=== PATIENT | female | born 1960 | race Caucasian/White ===

== ENCOUNTER 2018-10-11 08:18 | Emergency (ER) | payer OTHER ==
[2018-10-11 08:27] VITALS: BP 133/99
--- NOTE | 2018-10-11 08:42 | UC ---
Throat Pain/Nasal Benitez HPI - HPI Summary HPI Summary: 58-year-old woman comes in with a chief complaint of 4 days of upper respiratory tract infection symptoms and myalgias. About 4 days ago patient started with fevers and myalgias with a runny nose sore throat. Her sinus pressure is gotten worse. She's used over the counter saline nasal spray which did help some with the symptoms. However now her sinuses are completely compacted. No shortness of breath or cough. She has not been using decongestants. - History of Current Complaint Chief Complaint: UCRespiratory Stated Complaint: EAR PAIN SORE TGHROAT HEAD CONGESTION Time Seen by Provider: 10/11/18 08:31 Pain Intensity: 3 - Allergies/Home Medications Allergies/Adverse Reactions: Allergies Allergy/AdvReac Type Severity Reaction Status Date / Time No Known Allergies Allergy Verified 10/11/18 08:27 Home Medications: Home Medications Pantoprazole TAB * [Protonix TAB*] 40 mg PO DAILY 10/11/18 [History Confirmed ] Venlafaxine CAP (NF) [Effexor CAP (NF)] 75 mg PO DAILY 10/11/18 [History Confirmed 10/11/18] PMH/Surg Hx/FS Hx/Imm Hx Previously Healthy: Yes Endocrine History: Hypothyroidism - Surgical History Surgical History: Yes Surgery Procedure, Year, and Place: HYSTERECTOMY 1997,PARA THYROID SURGERY 1995 - Family History Known Family History: Positive: Non-Contributory - Social History Alcohol Use: None Substance Use Type: None Smoking Status (MU): Never Smoked Tobacco Review of Systems All Other Systems Reviewed And Are Negative: Yes Constitutional: Positive: Fever, Chills Skin: Positive: Negative Eyes: Positive: Negative ENT: Positive: Sore Throat, Ear Ache, Nasal Discharge, Sinus Congestion, Sinus Pain/Tenderness Respiratory: Positive: Negative Cardiovascular: Positive: Negative Gastrointestinal: Positive: Negative Motor: Positive: Negative Neurovascular: Positive: Negative Musculoskeletal: Positive: Myalgia Neurological: Positive: Negative Psychological: Positive: Negative Is Patient Immunocompromised?: No Physical Exam Triage Information Reviewed: Yes Appearance: No Pain Distress, Well-Nourished, Ill-Appearing - mild Vital Signs: Initial Vital Signs Temp 97.3 F 10/11/18 08:23 Pulse 79 10/11/18 08:23 Resp 16 10/11/18 08:23 BP 133/99 10/11/18 08:23 Pulse Ox 97 10/11/18 08:23 Vital Signs Reviewed: Yes Eye Exam: Normal Eyes: Positive: Conjunctiva Clear ENT: Positive: Pharyngeal erythema, Nasal congestion, Nasal drainage, TM dull Neck exam: Normal Neck: Positive: Supple Respiratory Exam: Normal Respiratory: Positive: Lungs clear, Normal breath sounds, No respiratory distress Cardiovascular: Positive: RRR Musculoskeletal Exam: Normal Musculoskeletal: Positive: Strength Intact, ROM Intact Neurological Exam: Normal Neurological: Positive: Alert, Muscle Tone Normal Psychological Exam: Normal Psychological: Positive: Age Appropriate Behavior Skin Exam: Normal Throat Pain/Nasal Course/Dx - Course Course Of Treatment: DISCUSSED VIRAL VERSES BACTERIAL INFECTION AND THE ROLE OF ANTIBIOTICS. THE PATIENT WISHES TO BE ON ANTIBIOTIC AT THIS TIME. - Differential Dx/Diagnosis Provider Diagnosis: Sinusitis Discharge - Sign-Out/Discharge Documenting (check all that apply): Patient Departure All imaging exams completed and their final reports reviewed: No Studies - Discharge Plan Condition: Stable Disposition: HOME Prescriptions: Amoxicillin/Clavulanate TAB* [Augmentin TAB 875*] 875 mg PO BID #20 tab Patient Education Materials: Sinusitis (ED) Referrals: Bethany Rutherford MD [Primary Care Provider] - Additional Instructions: FOLLOW UP WITH YOUR DOCTOR IF NOT COMPLETELY IMPROVED. GET RECHECKED FOR ANY WORSENING OF YOUR CONDITION OR QUESTIONS OR CONCERNS. - Billing Disposition and Condition Condition: STABLE Disposition: Home
== END 2018-10-11 08:50 | disposition home or self-care (01) ==
LOC: UCEAST 08:18
DX: J32.9 Chronic sinusitis, unspecified (principal)
CPT/HCPCS: 99212; G0463

== ENCOUNTER 2019-08-08 18:13 | Emergency (ER) | payer OTHER ==
[2019-08-08 18:40] LABS: Urine Appearance Clear; Urine Bilirubin Negative (Negative); Urine Blood 1+ (Negative); Urine Color Straw; Urine Glucose Negative (Negative); Urine Ketones Negative (Negative); Urine Nitrite Negative (Negative); Urine Protein Negative (Negative); Urine Specific Gravity 1.003 (1.010-1.030); Urine Urobilinogen Negative (Negative)
[2019-08-08 18:45] LABS: Urine Bacteria 1+ (Absent); Urine Red Blood Cell Trace(0-2/hpf) (Absent); Urine Squamous Epithelial Cell Present (Absent); Urine White Blood Cell Trace(0-5/hpf) (Absent)
[2019-08-08] MEDS ORDERED: Amoxicillin/Clavulanate TAB* 500 MG PO ONE (23:45)
[2019-08-08] MEDS ORDERED: Phenazopyridine TAB* 100 MG PO ONE (23:45)
--- NOTE | 2019-08-08 23:45 | ED ---
GI/ HPI - HPI Summary HPI Summary: 59-year-old who presents with dysuria for the past day. She states this feels similar to uti has had in the past. She admits to nausea after dinner but that has resolved. No vomiting. No fevers. No flank pain. No abdominal pain. she admits to urgency frequency. - History of Current Complaint Chief Complaint: EDUrogenitalProblems Time Seen by Provider: 08/08/19 23:40 Stated Complaint: POSS UTI PER PT Pain Intensity: 3 - Allergy/Home Medications Allergies/Adverse Reactions: Allergies Allergy/AdvReac Type Severity Reaction Status Date / Time No Known Allergies Allergy Verified 08/08/19 18:17 PMH/Surg Hx/FS Hx/Imm Hx Endocrine/Hematology History: Reports: Hx Thyroid Disease Denies: Hx Diabetes Cardiovascular History: Reports: Hx Hypertension Respiratory History: Denies: Hx Asthma, Hx Chronic Obstructive Pulmonary Disease (COPD) GI History: Denies: Hx Ulcer Sensory History: Reports: Hx Contacts or Glasses Opthamlomology History: Reports: Hx Contacts or Glasses - Cancer History Hx Chemotherapy: No Hx Radiation Therapy: No - Surgical History Surgery Procedure, Year, and Place: HYSTERECTOMY 1997,PARA THYROID SURGERY 1995 Infectious Disease History: No Infectious Disease History: Denies: Hx Clostridium Difficile, Hx Hepatitis, Hx Human Immunodeficiency Virus (HIV), Hx of Known/Suspected MRSA, Hx Shingles, Hx Tuberculosis, Hx Known/ Suspected VRE, Hx Known/Suspected VRSA, History Other Infectious Disease, Traveled Outside the [place] in Last 30 Days - Family History Known Family History: Positive: Non-Contributory - Social History Alcohol Use: None Substance Use Type: Reports: None Smoking Status (MU): Never Smoked Tobacco Review of Systems Negative: Fever Negative: Chest Pain Negative: Shortness Of Breath Positive: Nausea - resolved. Negative: Abdominal Pain, Vomiting Positive: dysuria, urgency. Negative: flank pain All Other Systems Reviewed And Are Negative: Yes Physical Exam Triage Information Reviewed: Yes Vital Signs On Initial Exam: Initial Vitals Temp Pulse Resp BP Pulse Ox 98.0 F 84 19 142/94 97 08/08/19 18:15 08/08/19 18:15 08/08/19 18:15 08/08/19 18:15 08/08/19 18:15 Vital Signs Reviewed: Yes Appearance: Positive: Well-Appearing Skin: Positive: Warm, Dry Head/Face: Positive: Normal Head/Face Inspection Eyes: Positive: Normal, Conjunctiva Clear ENT: Positive: Pharynx normal Respiratory/Lung Sounds: Positive: Clear to Auscultation, Breath Sounds Present Cardiovascular: Positive: Normal, RRR Abdomen Description: Positive: Nontender, Soft. Negative: CVA Tenderness (R), CVA Tenderness (L) Bowel Sounds: Positive: Present Musculoskeletal: Positive: Normal Neurological: Positive: Normal Psychiatric: Positive: Normal Procedures - Sedation Patient Received Moderate/Deep Sedation with Procedure: No Diagnostics - Vital Signs Vital Signs Temp Pulse Resp BP Pulse Ox 08/08/19 20:20 98.3 F 77 18 145/93 95 08/08/19 18:15 98.0 F 84 19 142/94 97 - Laboratory Lab Results: Lab Results 08/08/19 Range/Units 18:27 Urine Color Straw Urine Appearance Clear Urine pH 6.0 (5-9) Ur Specific [place] 1.003 L (1.010-1.030) Urine Protein Negative (Negative) Urine Ketones Negative (Negative) Urine Blood 1+ A (Negative) Urine Nitrate Negative (Negative) Urine Bilirubin Negative (Negative) Urine Urobilinogen Negative (Negative) Ur Leukocyte Esterase 1+ A (Negative) Urine WBC (Auto) Trace(0-5/hpf) (Absent) Urine RBC (Auto) Trace(0-2/hpf) (Absent) Ur Squamous Epith Cells Present A (Absent) Urine Bacteria 1+ A (Absent) Urine Glucose Negative (Negative) Lab Statement: Any lab studies that have been ordered have been reviewed, and results considered in the medical decision making process. GIGU Course/Dx - Course Course Of Treatment: 59-year-old who presents with dysuria for the past day. She states this feels similar to uti has had in the past. She admits to nausea after dinner but that has resolved. No vomiting. No fevers. No flank pain. No abdominal pain. she admits to urgency frequency. On exam nontender abdomen. Vital stable. Urine shows UTI. We'll treat with Augmentin and Pyridium. Told to increase fluids. Patient understands and agrees plan. - Diagnoses Differential Diagnoses - Female: Pyelonephritis, Urinary Tract Infection, Ureteral Calculi Provider Diagnoses: UTI (urinary tract infection) Discharge ED - Sign-Out/Discharge Documenting (check all that apply): Patient Departure - Discharge Plan Condition: Good Disposition: HOME Prescriptions: Amoxicillin/Clavulanate TAB* [Augmentin TAB 500 mg*] 500 mg PO BID #9 tab Phenazopyridine 200 mg (NF) [Pyridium 200 MG tab *] 200 mg PO TID #5 tab Patient Education Materials: Urinary Tract Infection in Women (ED) Referrals: Bethany Rutherford MD [Primary Care Provider] - Additional Instructions: Take augmentin twice a day for 5 days, first dose given in ED Take pyridium two tablets three times a day with food for 2 days, first dose given in ED drink plenty of fluids Follow up with primary in 7 days Return to ED if develop fever or any new or worsening symptoms - Billing Disposition and Condition Condition: GOOD Disposition: Home
[2019-08-08 23:58] VITALS: BP 0/0
== END 2019-08-08 23:48 | disposition home or self-care (01) ==
LOC: ED 18:13
DX: N39.0 Urinary tract infection, site not specified (principal); E03.9 Hypothyroidism, unspecified; I10 Essential (primary) hypertension; Z90.710 Acquired absence of both cervix and uterus
CPT/HCPCS: 81003; 81015; 87086; 99282; A9270-GY

== ENCOUNTER → 2019-09-16 08:55 | Day surgery (SDC) | payer OTHER ==
[~2019-09-16 08:55] MED LIST: Bacitracin OINTMENT* 0.5% 0.5 oz TUBE ONE; Buffered Lidocaine 1% SYRIN* 1 ML/SYRINGE INTRADERM ONE; Dexamethasone IV* 4 MG/ML 1 ML (4 MG) ONE; EPHEDrine (Pressors)* 50 MG/ML VIAL ONE; Famotidine IV* 10 MG/ML 2 ML (20 mg) IV ONE; Famotidine IV* 10 MG/ML 2 ML (20 mg) ONE; Ketorolac INJ* 30 MG/ML 1 ML VIAL ONE; Lactated Ringers 1000 ML Bag* 1,000 ML IV SCH; Lidocaine 1% w EPI 1:100,000* MDV 20 ML VIAL ONE; Lidocaine 2% PF * 5 ML VIAL ONE; Lidocaine 4% TOPICAL* 50 ML TOP.SOLN ONE; Midazolam* 1 MG/ML 5 ML VIAL (5 MG) ONE; Naloxone* 0.4 MG/ML 1 ML VIAL IV PRN; Ondansetron INJ* 2 MG/ML VIAL IV PRN; Ondansetron INJ* 2 MG/ML VIAL ONE; Oxymetazoline 0.05% NASAL SPR* 15 ML BTL ONE; Propofol* 10 MG/ML 20 ML BTL ONE; Triamcinolone Acetonide* 40 MG/ML 1 ML VIAL ONE; fentaNYL* 50 MCG/ML 2 ML VIAL (100 MCG VIAL) IV PRN; fentaNYL* 50 MCG/ML 2 ML VIAL (100 MCG VIAL) ONE; oxyCODONE ORAL.SOLN* 5 MG/5 ML UDC ONE
[2019-09-16 14:31] VITALS: BP 138/89
--- NOTE | 2019-09-16 21:41 | OP ---
DATE OF OPERATION: 09/16/19 [facility] DATE OF : 56 ATTENDING SURGEON: Jeffry Teran MD BILINGUAL TRAINER: None. ANESTHESIA: General. PRE-OP DIAGNOSIS: Sinonasal polyposis. POST-OP DIAGNOSIS: Sinonasal polyposis. OPERATIVE PROCEDURE: Bilateral endoscopic sinus surgery, specifically left partial ethmoidectomy, left maxillary antrostomy with removal of polyp and right maxillary antrostomy with removal of polyp. ESTIMATED BLOOD LOSS: Approximately 75 mL. SPECIMENS: Right and left sinus contents to Pathology. 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 DESCRIPTION OF PROCEDURE: On 09/16/19, the patient was brought to the operating room. General anesthesia was induced and oral endotracheal tube was placed. The patient was draped. Time-out was performed. The [employer] system was used integrated with patient's CT scan to provide navigation. It was registered to within 1.5 mm accuracy. The patient had been previously decongested in the holding area, 1% lidocaine with 1:100,000 epinephrine was infiltrated into both middle turbinates as well as into polyps on both sides of the nose. Once adequate time had been allotted for vasoconstriction, the procedure was begun on the left side. A straight Blakesley forceps was used to debulk some of the polyps. After that, a microdebrider was used to facilitate further removal of polyps. A ball-tip probe was used to cannulate the natural ostium of the maxillary sinus and enlarge it. It was also used to forward fracture the uncinate. The microdebrider was then used to complete the uncinectomy and maxillary antrostomy. Polyp was removed from the maxillary sinus as well. The ethmoid bulla was then entered with a J curette. Anterior ethmoid septations as well as polyp tissue and polypoid mucosa was removed using a combination of thru-cutting forceps and the microdebrider. Once the procedure on the left was completed, attention was turned to the right side. The patient on this side predominantly had polyps in the right middle meatus on both sides of the middle turbinate. The middle turbinate was medialized. The uncinate was taken down. Natural maxillary antrum was identified with the ball- tip probe and enlarged. It was an accessory antrum. These two were connected. A microdebrider was used to complete the antrostomy as well as the uncinectomy. Polyp was removed from the area of the opening of the maxillary sinus and some also from the nasal roof medial to the middle turbinate. Both middle turbinates were bolgerized. Stammberger Sinu-Foam gel with Kenalog was then placed into the middle meatus bilaterally. Some septal bleeding on the left was controlled with a monopolar suction Bovie cautery. The patient was then extubated and delivered to the PACU. [id number]/CPS #: [id number] AMANDA
== END | disposition home or self-care (01) ==
LOC: OR 08:55
PROVIDERS: ATTEND Otolaryngology
DX: J33.0 Polyp of nasal cavity (principal); J33.1 Polypoid sinus degeneration; J32.0 Chronic maxillary sinusitis; E03.9 Hypothyroidism, unspecified; E78.5 Hyperlipidemia, unspecified; K21.9 Gastro-esophageal reflux disease without esophagitis; E55.9 Vitamin D deficiency, unspecified; F32.9 Major depressive disorder, single episode, unspecified
CPT/HCPCS: 88305; A9270-GY; J1100; J1885; J2250; J2405; J2704; J3010; J3301

== ENCOUNTER 2019-10-09 07:08 | Emergency (ER) | payer OTHER ==
--- OUTSIDE RECORDS SUMMARY | 2019-10-09 07:12 | XMS REPORT | Continuity of Care Document ---
:1960 External Reference #:[id number] Author Name Jeffry Teran MD Address [address] [place] [address] Care Team Providers Name Role Phone Bethany Rutherford M.D. 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 Medicine Problems Description No Information Available Social History Type Date Description Comments Sex Unknown Tobacco Use Start: Unknown Never Smoked Cigarettes Tobacco Use Start: Unknown Never Smoked Cigars Tobacco Use Start: Unknown Never Smoked A Pipe Smokeless Tobacco Never Used Smokeless Tobacco ETOH Use Currently occasionally consumes alcohol Tobacco Use Start: Unknown Patient has never smoked Smoking Status Reviewed: 09/11/19 Patient has never smoked Allergies, Adverse Reactions, Alerts Description No Known Drug Allergies Medications Active Medications SIG Qnty Indications Ordering Date Provider Amoxicillin/Clavulanat 1 by mouth twice 20tabs Jeffry Navarro 07/19/2019 e Potassium a day for 10 days MD Jeffry 875-125mg - start after Tablets surgery Percocet 1-2 tabs by mouth 24tabs Jeffry Navarro 07/19/2019 5-325mg Tablets every 4-6 hours MD Jeffry as needed for pain Prednisone 4 tabs po every 40tabs Jeffry Navarro 07/19/2019 10mg Tablets day x4 d, then 3 MD Jeffry tabs po every day x4 d, then 2 tabs po every day x4d, then 1 tab po qd x4d begin 3 days before surgery Montelukast Sodium 1 by mouth every 90tabs Jeffry Navarro 01/26/2019 10mg day MD Jeffry Tablets Mometasone Furoate 2 sprays to each 51gm Jeffry Navarro 01/26/2019 nostril daily MD Jeffry 50mcg/Act Suspension Medrol take as directed melina Navarro 12/30/2018 4mg TBPK MD Jeffry Levothyroxine Sodium 1 by mouth every Unknown day 88mcg Tablets Venlafaxine HCL ER 1 cap daily Unknown 75mg Caps ER 24HR Simvastatin 1 by mouth every Unknown 20mg Tablets day Pantoprazole Sodium 1 tab daily Unknown 40mg Tablets DR MCLEOD Vitamin B12 3 tabs daily Unknown 1000mcg Tablets ER D3 Adult 3 chewtabs daily Unknown 1000Unit Chewtabs Cetirizine HCL 1 by mouth every Unknown 10mg day Tablets Vitamin D3 1 by mouth every Unknown 25mcg (999 day Ut) Capsules Vitamin D3 1 by mouth every Unknown 50mcg (1999 day Ut) Capsules Cranberry 2 caps daily Unknown 200mg Capsules Immunizations Description No Information Available Vital Signs Date Vital Result Comment 09/12/2019 9:23am BP Systolic 138 mmHg BP Diastolic 100 mmHg Heart Rate 78 /min Weight 184.00 lb Weight 83.462 kg Height 66 inches 5'6" Height in cm's 167.6 cm BMI (Body Mass Index) 29.7 kg/m2 07/19/2019 11:08am BP Systolic 123 mmHg BP Diastolic 80 mmHg Heart Rate 111 /min Respiratory Rate 19 /min Weight 184.00 lb Weight 83.462 kg Height 66 inches 5'6" Height in cm's 167.6 cm BMI (Body Mass Index) 29.7 kg/m2 Results Test Acquired Date Facility Test Result H/L Range Note Surgical 09/16/2019 [facility] Surgical SEE RESULT 1 Pathology c/o Department of Laboratories [place] [address] [phone] PDFReport SEE IMAGE 1 SEE RESULT BELOW Name: YULIET RENTERIA : [address]: Jeffry Teran MD Acct: [id number] Unit: [id number] AGE: 59 Location: OR Re09/16/19 SEX: F Status: REG SDC SPEC: [id number] ROSSY: 09/16/19- [facility]: Jeffry Teran MD REQ: [id number] RECD: 09/16/19 STATUS: SOUT _ ORDERED: LEVEL 4/2 FINAL DIAGNOSIS 1. Right sinus contents: -- Benign sinonasal polyp(s). -- Chronically inflamed respiratory mucosa. 2. Left sinus contents: -- Benign sinonasal polyp(s). -- Chronically inflamed respiratory mucosa. 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 The specimen is received in formalin labeled, Right Sinus Contents, and consists of a 2.0 x 1.9 x 0.4 cm aggregate of smalls-pink irregular to polypoid mucosal tissue fragments admixed with a small amount of red-brown blood clot. Entirely submitted, one cassette. 2. The specimen is received in formalin labeled, Left Sinus Contents, and consists of a 4.3 by up to 3.2 x 0.7 cm smalls-pink irregular to polypoid mucosal tissue fragment. Received separately in the same container is a 1.6 x 1.2 x 0.4 cm aggregate of smalls- pink irregular to polypoid mucosal tissue fragments admixed with scant red-brown blood clot. The largest fragment is serially sectioned in the specimen is entirely submitted in cassettes A through E to include separately received tissue in cassette E. CONTINUED ON NEXT PAGE DEPARTMENT OF PATHOLOGY, [address] [place] [address] Art Covarrubias M.D. Director [facility] # [id number] Signed by and Reported on: Art Covarrubias MD 1530 END OF REPORT DEPARTMENT OF PATHOLOGY, [address] [place] [address] Art Covarrubias M.D. 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 Assessments Date Code Description Provider 09/22/2019 J33.0 Polyp of nasal cavity Jeffry Teran MD 09/22/2019 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 Jeffry Teran MD 09/22/2019 J32.2 Chronic ethmoidal sinusitis Jeffry Teran MD 09/22/2019 J32.0 Chronic maxillary sinusitis Jeffry Teran MD 09/12/2019 J33.0 Polyp of nasal cavity Stephani Hanks PA-C 09/12/2019 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 Stephani Hanks PA-C 09/12/2019 J32.2 Chronic ethmoidal sinusitis Stephani Hanks PA-C 09/12/2019 J32.0 Chronic maxillary sinusitis Stephani Hanks PA-C 07/19/2019 J33.0 Polyp of nasal cavity Jeffry Teran MD 07/19/2019 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 Jeffry Teran MD 07/19/2019 J32.2 Chronic ethmoidal sinusitis Jeffry Teran MD 07/19/2019 J32.0 Chronic maxillary sinusitis Jeffry Teran MD 07/05/2019 J33.0 Polyp of nasal cavity Jeffry Teran MD 07/05/2019 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
--- OUTSIDE RECORDS SUMMARY | 2019-10-09 07:12 | XMS REPORT | Continuity of Care Document ---
:1960 External Reference #:[id number] Author Name Stephani Hanks PA-C Address [address] [place] [address] Care Team Providers Name Role Phone Bethany Rutherford M.D. 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 We are planning bilateral endoscopic sinus surgery with navigation. The procedure was discussed in detail with the patient. Risks including but not limited to postoperative pain, bleeding, recurrence of polyps, orbital injury, and CSF leak were specifically discussed with the patient. She understands these issues and agrees to proceed with surgery. Functional Status Description No Information Available Mental Status Description No Information Available Referrals Description No Information Available
[2019-10-09 07:47] VITALS: BP 137/96
[2019-10-09] MEDS ORDERED: Phenazopyridine TAB* 100 MG PO ONE (07:47)
[2019-10-09] MEDS ORDERED: Amoxicillin/Clavulanate TAB* 875 MG PO ONE (07:47)
--- NOTE | 2019-10-09 07:50 | UC ---
Complaint Female HPI - HPI Summary HPI Summary: 59-year-old woman comes in with a chief complaint of UTI symptoms. Several days ago patient had some burning with urination and urgency. The symptoms reminded her of urinary tract infection. The symptoms improved. During the middle the night this morning at 3 AM patient woke up with the need to urinate burning with urination urgency and frequency. Also having some right flank pain. No fevers recorded. Patient reports symptoms are consistent with urinary tract infection. Patient did have surgery 2-3 weeks ago she is not sure if she had a Cardona catheter placed. - History Of Current Complaint Chief Complaint: UCGU Stated Complaint: UTI Time Seen by Provider: 10/09/19 07:38 Pain Intensity: 3 - Allergies/Home Medications Allergies/Adverse Reactions: Allergies Allergy/AdvReac Type Severity Reaction Status Date / Time latex AdvReac Intermediate Rash Verified 10/09/19 07:38 PMH/Surg Hx/FS Hx/Imm Hx Previously Healthy: Yes - Surgical History Surgical History: Yes Surgery Procedure, Year, and Place: HYSTERECTOMY 1997,PARA THYROID SURGERY 1995. tubal ligation, wisdom teeth removed - Family History Known Family History: Positive: Non-Contributory - Social History Alcohol Use: None Substance Use Type: None Smoking Status (MU): Never Smoked Tobacco Review of Systems All Other Systems Reviewed And Are Negative: Yes Constitutional: Positive: Negative Skin: Positive: Negative Eyes: Positive: Negative ENT: Positive: Negative Respiratory: Positive: Negative Cardiovascular: Positive: Negative Gastrointestinal: Positive: Other - SEE HPI Genitourinary: Positive: Dysuria, Frequency, Urgency Motor: Positive: Negative Neurovascular: Positive: Negative Musculoskeletal: Positive: Negative Neurological: Positive: Negative Psychological: Positive: Negative Is Patient Immunocompromised?: No Physical Exam Triage Information Reviewed: Yes Appearance: Well-Appearing, No Pain Distress, Well-Nourished Vital Signs: Initial Vital Signs Temp 97.5 F 10/09/19 07:41 Pulse 77 10/09/19 07:41 Resp 18 10/09/19 07:41 BP 137/96 10/09/19 07:41 Pulse Ox 98 10/09/19 07:41 Vital Signs Reviewed: Yes Eye Exam: Normal Eyes: Positive: Conjunctiva Clear Neck: Positive: Supple Respiratory: Positive: Lungs clear, Normal breath sounds, No respiratory distress Cardiovascular: Positive: RRR Abdomen Description: Positive: Nontender, Soft, CVA Tenderness (R) Musculoskeletal: Positive: Strength Intact, ROM Intact Neurological: Positive: Alert, Muscle Tone Normal Psychological: Positive: Age Appropriate Behavior Skin Exam: Normal Complaint Female Dx - Course Course Of Treatment: Patient was successfully treated in July 2019 with Augmentin. We'll treat again with Augmentin. Because the patient has right flank pain I will treat with 875 mg twice a day for 7 days. Outpatient know that if she felt ill or got worse she needs to get reevaluated again right away. Otherwise she should follow-up with her primary care physician. Patient reports that she has an appointment next couple of weeks with her primary care physician. - Differential Dx/Diagnosis Provider Diagnosis: UTI (urinary tract infection) Discharge ED - Sign-Out/Discharge Documenting (check all that apply): Patient Departure All imaging exams completed and their final reports reviewed: No Studies - Discharge Plan Condition: Stable Disposition: HOME Prescriptions: Amoxicillin/Clavulanate TAB* [Augmentin TAB 875*] 875 mg PO BID #13 tab Phenazopyridine 200 mg (NF) [Pyridium 200 MG tab *] 200 mg PO TID PRN #8 tab PRN Reason: Pain - Mild Patient Education Materials: Urinary Tract Infection in Women (ED) Referrals: Bethany Rutherford MD [Primary Care Provider] - Additional Instructions: FOLLOW UP WITH YOUR DOCTOR. GET REEVALUATED SOONER IF NOT IMPROVED OR WORSE; FEVER, YOU FEEL ILL, PAIN OR ANY QUESTIONS OR CONCERNS. - Billing Disposition and Condition Condition: STABLE Disposition: Home
== END 2019-10-09 07:58 | disposition home or self-care (01) ==
LOC: UCEAST 07:08
DX: N39.0 Urinary tract infection, site not specified (principal); Z91.040 Latex allergy status
CPT/HCPCS: 81003; 87077; 87086; 87186; 99212; A9270-GY; G0463